=== PATIENT | female | born 1955 | race Caucasian/White ===

== ENCOUNTER → 2021-12-16 | Outpatient (CLI) | payer MEDICARE, OTHER ==
[~2021-12-16] MED LIST: ENOXAPARIN30 MG/0.3 SC; FISH OIL 1,0001 EACH PO; GLUCOPHAGE500 MG PO; LORTAB 5-325 M1 EACH PO; OMEPRAZOLE20 MG PO; PRAVACHOL40 MG PO
== END ==
LOC: HEART CORB 10:00
DX: I49.3 Ventricular premature depolarization (principal); I10 Essential (primary) hypertension; R42 Dizziness and giddiness; R07.2 Precordial pain; I07.1 Rheumatic tricuspid insufficiency; I27.20 Pulmonary hypertension, unspecified
CPT/HCPCS: 93306